=== PATIENT | female | born 1965 | race Caucasian/White ===

== ENCOUNTER 2020-01-21 01:03 | Outpatient (CLI) | payer BC, SELFPAY ==
[2020-01-21 18:10] LABS: SARS-CoV-2 RNA PCR Negative
== END 2020-01-21 01:04 | disposition home or self-care (01) ==
LOC: ANHCOVIDDT 01:04
PROVIDERS: PCP Internal Medicine; Visit Provider Urology
DX: Z20.828 Contact with and (suspected) exposure to other viral communicable diseases (principal); Z01.812 Encounter for preprocedural laboratory examination
CPT/HCPCS: 87635; C9803; U0003

== ENCOUNTER 2020-01-23 03:16 | Day surgery (SDC) | payer BC, SELFPAY ==
[2020-01-20 17:00] VITALS: BMI 24.0
[2020-01-23] VITALS (8 sets, daily range): BP systolic 109–130; BP diastolic 61–77; PULSE 57–80; RESP 12–20; TEMP 36.2–36.3; O2SAT 99–100
--- NOTE | ~2020-01-23 | XR_ITS ---
EXAMINATION: XR fluoroscopy no charge DATE: 01/23/2020 08:41 INDICATION: Left sided stone extraction TECHNIQUE: 5 fluoroscopic spot images of the abdomen and pelvis were obtained during procedure perfor med by Dr. Shukla. Radiologist was not present for the imaging or procedure. The amount of fluoroscop y time used during this procedure was 0.2 minutes. COMPARISON: None. FINDINGS: No definitive stone identified on the receptionist telephone operator images. Subsequent images demonstrate a wire and catheter advanced into the left ureter. IMPRESSION: 1. Fluoroscopy utilized during urologic procedure on the left ureter. See procedure note for further detail. Reviewed, dictated and finalized at location A. IMPRESSION: 1. Fluoroscopy utilized during urologic procedure on the left ureter. See proce dure note for further detail.
--- NOTE | 2020-01-23 07:05 | WPDHPUPDATE1 ---
History and Physical Update Update Date/Time: 01/23/20 07:05 History and Physical has been reviewed, including an updated exam of the patient. There are NO changes in the patient's condition. Risks, benefits, and alternatives have been discussed and questions answered. Patient agrees to proceed with procedure.
[2020-01-23] MEDS: LACTATED RINGERS 1,000 ML 30 ML IV CONT (07:35)
--- NOTE | 2020-01-23 07:43 | P.PNAN_ITS ---
Anes - Initial Pre Proc Eval Procedure: Operation Date: 01/23/20 08:30 Proposed Procedures p Cystoscopy, Left Ureteroscopy With Left Stone Extraction - Roly Shukla MD Date/Time: 01/23/20 07:43 Surgeon: Roly Shukla MD Pre Op Diagnosis: Kidney Stone Patient Data Age: 54 Gender: F Height: 5 ft 10.5 in Weight: 79.25 kg Last Vital Signs Temp 36.2 C L 01/23/20 06:51 Pulse 80 01/23/20 06:51 Resp 20 01/23/20 06:51 BP 118/61 01/23/20 06:51 Pulse Ox 99 01/23/20 06:51 Allergies Allergy/AdvReac Type Severity Reaction Status Date / Time No Known Allergies Allergy Verified 01/23/20 07:27 Home Medications Medication Instructions Recorded Confirmed Type albuterol sulfate 1 puff INHALATION PRN PRN 01/20/20 01/20/20 History cetirizine 5 mg PO DAILY 01/20/20 01/23/20 History fluticasone propionate 50 mcg INTRANASAL PRN 01/20/20 01/23/20 History montelukast 10 mg PO DAILY 01/20/20 01/23/20 History omeprazole 20 mg PO DAILY 01/20/20 01/23/20 History Patient hx anesthesia problems: none Family hx anesthesia problems: none [facility] Past Medical History Medical History (Updated 01/23/20 @ 07:44 by Ramesh Baig MD) Asthma Renal stones Surgical History Surgical History (Updated 01/23/20 @ 07:45 by Ramesh Baig MD) S/P correction of deviated nasal septum Social History Social History (Updated 01/23/20 @ 07:45 by Ramesh Baig MD) Smoking status: Never smoker Gender identity (if verbalized by the patient): Female Anes - Eval Final PreProcedure Day of Procedure 01/23/20 07:43 Patient weight: normal Heart: regular rate and rhythm Lungs: clear to auscultation Airway: Mallampati scale class II Neurological: alert and oriented Last oral intake: >/= 8 hours ASA classification: II Anesthetic plan: proceed Anesthesia type and monitoring: general LMA and standard monitoring Informed Consent: The patient's anesthetic plan and its attendant risks and benefits were discussed with the patient/family/POA. Questions were solicited and answers provided to the satisfaction of the patient/family/POA.
[2020-01-23] MEDS: ceFAZolin 2 GM/D5W 50 ML 2 GM/50 ML BAG IVPB (08:18)
--- NOTE | 2020-01-23 08:19 | SUR.PREOP ---
family update provided
[2020-01-23] MEDS: LIDOCAINE HCL 2% GEL UROJET 10 ML PKG MUCOUS MEM (08:35)
[2020-01-23] MEDS: KETOROLAC 30 MG/ML VIAL (*BKC) IV PUSH (08:36)
--- NOTE | 2020-01-23 08:43 | P.OP_ITS ---
Procedure Note - Detailed Date of procedure: 01/23/20 Pre-op diagnosis: Kidney Stone Post-op diagnosis: same Procedure performed: Cystoscopy, left ureteroscopy with stone extraction Description of procedure: The patient was brought to the operative suite where she is prepped and draped in a routine sterile fashion while in the dorsal lithotomy position after the uneventful induction of a general LMA anesthetic. A 19F rigid cystoscope was placed in the bladder. The patient had no evidence of urethral stricture or bladder neck contracture. The bladder mucosa was endoscopically normal without hyperemia or neoplasm. There was a single, orthotopic ureteral orifice bilaterally. A 0.035 glidewire was advanced into the left renal pelvis under fluoroscopy. The distal ureter was dilated with an 8F/10F ureteral dilator. Ureteroscopy was undertaken with a short, tapered, semi-rigid ureteroscope and the stone was extracted with ease using a 1.9F Do[employer] disposable stone basket. Due to the ease of this manipulation I opted not to place a ureteral stent. The patient's bladder was emptied and was taken to the recovery room having tolerated this procedure well. Anesthesia: GLMA Surgeon: Roly Shukla MD Estimated blood loss (mL): 0 Drains: No Packing: No Pathology: none sent Complications: No immediate complications Condition: stable Disposition: PACU
== END 2020-01-23 10:25 | disposition home or self-care (01) ==
PROVIDERS: PCP Internal Medicine; Visit Provider Urology
PROC: (CPT 52352; principal; 2020-01-23 08:30)
DX: N20.0 Calculus of kidney (principal); J45.909 Unspecified asthma, uncomplicated
CPT/HCPCS: 52352; 82365; 88300; A9270; C1769; J0690; J1100; J1885; J2250; J2405; J2704; J3010; J7120; Q9966

== ENCOUNTER 2025-01-06 08:49 | Outpatient (CLI) | payer OTHER, SELFPAY ==
--- NOTE | ~2025-01-06 | DEXA_ITS ---
Bone Density Report Name: SHALA MCCALL Age: 59 Sex: Female Ethnicity: White Date of : 1965 Indication: postmenopausal; screening for osteoporosis; parental hip fracture; inflammatory bowel disease; prior fracture; Referring Provider: UNKNOWN, UNKNOWN Study: Bone densitometry was performed. Exam Date: January 06, 2025 Accession number: [id number] Bone Density: Region BMD T-score Z-score Classification AP Spine(L1-L4) 0.855 -1.7 -0.4 Osteopenia Femoral Neck (Left) 0.605 -2.2 -1.0 Osteopenia Total Hip (Left) 0.821 -1.0 -0.1 Normal World Health Organization criteria for BMD impression classify patients as: Normal (T-score at or above -1.0), Osteopenia (T-score between -1.0 and -2.5), or Osteoporosis (T-score at or below -2.5). 10-year Fracture Risk: FRAX not reported because: Prior hip or vertebral fracture Treated for osteoporosis Clinical Information Provided by Patient: Have had a previous hip or vertebral fracture Has had a low trauma fracture Parent has had a hip fracture Is being treated for osteoporosis Has used the following medications: Reclast (i.e. zoledronate), Vitamin D, Calcium Has the following medical conditions: Inflammatory bowel diseases Patient maximum height was 70.5 Menopause Age: 51 Onset of menses at age 15 Number of children 0 Impression: The patient has low bone mass, based on the Left Femoral Neck T-score. The patient has risk factors, including: parental hip fracture, previous fracture. Discussion: It is important to ask patients whether they are taking their medications and to encourage continued and appropriate compliance with their osteoporosis therapies to reduce fracture risk. It is also important to review their risk factors and encourage appropriate calcium and vitamin D intakes, exercise, fall prevention and other lifestyle measures. Follow-Up: Consider a repeat BMD and Vertebral Fracture Assessment (VFA) exam in 2 years or sooner if medically necessary, to reassess this patient's status. Reported by: YOLANDA on 01/06/2025 9:35:00 AM. Reviewed, dictated and finalized at location A.
--- OUTSIDE RECORDS SUMMARY | 2025-01-06 08:58 | XMS_ITS | Encounter Summary ---
Author Organization [facility] Address [address] [place] [address] Care Team Providers Care Garage Helper Name Role Phone Duncan Waterman MD Primary Care Provider Encounter Details Date Type Department Care Team (Late Contact Info) Description 01/18/2024 Telephone [facility] - Centralized Scheduling [address] [place] [phone] Frieda Verdugo MD [address] [place] [phone] Social History Tobacco Use Types Packs/Day Years Used Date Smoking Tobacco: Never Assessed Comments Unknown Sex and Gender Information Value Date Recorded Sex Assigned at Not on file 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 I have put the orders in. Frieda Verdugo MD Legal Administrative Secretary Department of Endocrinology, Diabetes and Metabolism. documented in this encounter Plan of Treatment Upcoming Encounters Date Type Department Care Team ([facility] Contact Info) Description 01/20/2025 1:40 PM CDT Office Visit [facility] - Endocrinology [address] [place] [address], [place] [address] Frieda Verdugo MD [address] [facility] [address] [place] [phone] documented as of this encounter Visit Diagnoses Not on filedocumented in this encounter Care Teams Garage Helper Relationship Specialty Start Date End Date Duncan Waterman MD [address] [address] PCP - General Internal Medicine 10/02/23 documented as of this encounter
--- OUTSIDE RECORDS SUMMARY | 2025-01-06 08:58 | XMS_ITS | CONTINUITY OF CARE DOCUMENT ---
Author Name raji alegria Address Unknown Organization [facility] Address [address] [facility] [address] [place] [address] Phone [phone] Care Team Providers Care Direct Of Real Estate Name Role Phone Cynthia Lopez MD Unavailable [phone] Cynthia Lopez MD Unavailable [phone] INSURANCE PROVIDERS Payer name Policy type / Coverage type [place] [employer] party ID [facility] X[employer] insurance company 9 [id number]
--- OUTSIDE RECORDS SUMMARY | 2025-01-06 08:58 | XMS_ITS | Encounter Summary ---
Author Organization [facility] Address [address] [facility] [place] [address] Care Team Providers Care Professional Services Manager Name Role Phone Duncan Waterman MD Primary Care Provider [phone] Reason for Referral * Radiology Services (Routine) - Open Specialty Diagnoses / Procedures Referred By Leatha posada Referred To Contact Diagnoses Osteopenia of necks of both femurs History of healed fragility fracture Procedures Dexa Bone Density Axial Skeleton Frieda Verdugo MD [address] [place] [address] [address] [place] [address] Phone: tel: fax: Referral ID Status Reason Start Date Expiration Date Visits Re quested Visits Authorized [id number] Open 01/05/2025 01/05/2026 1 1 Encounter Details Date Type Department Care Team (Late st Contact Info) Description 01/05/2025 Orders Only [facility] - Endocrinology [address] [place] [address], [place] [address] Frieda Verdugo MD [address] [place] [address] [address] [place] [address] Osteopenia of necks of both femurs ; History of healed fragility fracture Social History Tobacco Use Types Packs/Day Years Used Date Smoking Tobacco: Never Assessed Comments Unknown Sex and Gender Information Value Date Recorded Sex Assigned at Not on file 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 Gender Identity Not on file Sexual Orientation Not on file documented as of this encounter Plan of Treatment Upcoming Encounters Date Type Department Care Team (Late st Contact Info) Description 01/20/2025 1:40 PM CDT Office Visit [facility] - Endocrinology [address] [place] [address], [place] [address] Frieda Verdugo MD [address] [place] [address] [place] [address] Scheduled Orders Name Type Priority Associated Diagnoses Orde r Schedule Dexa Bone Density Axial Skeleton Imaging Routine Osteopenia of necks of both femurs History of healed fragility fracture 1 Occurrences starting 01/05/2025 until 01/05/2026 documented as of this encounter Visit Diagnoses Diagnosis Osteopenia of necks of both femurs- Primary History of healed fragility fracture documented in this encounter Care Teams Professional Services Manager Relationship Specialty Start Date End Date Duncan Waterman MD [address] [address] PCP - General Internal Medicine 10/02/23 documented as of this encounter
--- OUTSIDE RECORDS SUMMARY | 2025-01-06 08:58 | XMS_ITS | Clinical Summary ---
Author Organization [facility] [employer] Address [address] [place] [address] Care Team Providers Care Old Testament Professor Name Role Phone Duncan Waterman MD Primary Care Provider Source Comments [facility],non-owned Affiliates and Associated Physician Practices is amultiple site organization consisting of ambulatory clinics and hospital sitesin [place], [place], [place] and [place]. This disclosure is being madepursuant to the Care Everywhere program and may not contain all information available regarding this patient. Last updated 18.[facility] [employer] Allergies Active Allergy Reactions Criticality Noted Date Comments Dog Epithelium Unknown 01/15/2024 Molds & Smuts Unknown 01/15/2024 Sodium Hypochlorite Unknown 01/15/2024 Medications * Be aware that medications may not be up to date on this document. Alwaysverify current medications with the patient. Eliquis 2.5 MG tablet TAKE 1 TABLET BY MOUTH EVERY 12 HOURS FOR ANTICOAGULANT Active azelastine (Astepro) 205.5 MCG/SPRAY nasal spray [place] 1 spray twice a day by intranasal route. Active benzonatate (Tessalon) 200 MG capsule Take 1 capsule 3 times a day by oral route as needed. Active cefdinir (Omnicef) 300 MG capsule 4 Active celecoxib (CeleBREX) 100 MG capsule 4 Active clarithromycin (Biaxin) 500 MG tablet Take 1 tablet every 12 hours by oral route. Active fluticasone propionate (Flonase) 50 MCG/ACT nasal spray [place] 2 (two) sprays into each nostril once daily Active montelukast (Singulair) 10 MG tablet Take 1 (one) tablet by mouth once daily Active NA-K-MG sulfates (Suprep) 17.5-3.13-1.6 GM/177ML solution Active omeprazole (PriLOSEC) 40 MG capsule Take 1 (one) capsule by mouth once daily Active pantoprazole EC (Protonix) 40 MG tablet Take 1 tablet every day by oral route. Active polyethylene glycol 3350 (Miralax) 17 g packet 4 Active predniSONE (Deltasone) 10 MG tablet 30mg x 2 days, 20mg x 2 days, 10mg x 2 days Active Stimulant Laxative 8.6-50 MG tablet TAKE 2 TABLETS BY MOUTH TWICE DAILY TO PREVENT CONSTIPATION- HOLD FOR LOOSE STOOLS 4 Active Active Problems Problem Noted Date Diagnosed Date Age-related osteoporosis wit h current pathological fracture with routine healing 01/21/2024 Encounters Date Type Department Care Team Description 01/05/2025 Orders Only [facility] - Endocrinology [address] [place] [phone] Frieda Verdugo MD Osteopenia of necks of both femurs ; History of healed fragility fracture 01/02/2025 Telephone [facility] - Endocrinology [address] [place] [phone] Frieda Verdugo MD Imaging from Last 3 Months Immunizations Immunization Administration Dates Next Due INFLUENZA VACCINE, QUADR. 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 Gender Identity Not on file Sexual Orientation Not on file Last Filed Vital Signs Vital Sign Reading Time Taken Comments Blood Pressure 149/88 01/28/2024 12:29 PM CDT Pulse 102 01/28/2024 12:29 PM CDT Temperature 36.7 C (98 F) 01/28/2024 12:29 PM CDT Respiratory Rate 20 01/28/2024 12:29 PM CDT Oxygen Saturation 100% 01/28/2024 12:29 PM CDT Inhaled Oxygen Concentration - - Weight 89.4 kg (197 lb) 01/28/2024 12:29 PM CDT Height 179.1 cm (5' 10.5) 01/15/2024 3:41 PM CD T Body Mass Index 27.87 01/15/2024 3:41 PM CDT Plan of Treatment Upcoming Encounters Date Type Department Care Team (Late st Contact Info) Description 01/20/2025 1:40 PM CDT Office Visit [facility] - Endocrinology [address] [place] [address], [place] [address] Frieda Verdugo MD [address] [place] [address] [place] [address] Health Maintenance Due Date Last Done Comments COLOGUARD (AGES 45-75) - COLON CA SCREENING 1966 COLON MONITORING 1966 COLONOSCOPY - COLON CA SCREENING 1966 CT COLONOGRAPHY - COLON CA SCREENING 1966 Colorectal Cancer Screening 1966 FIT - COLON CA SCREENING 1966 FLEX SIG - COLON CA SCREENING 1966 LIPID TESTING 1966 MAMMOGRAM 1966 PAP SMEAR 1966 HIV SCREENING 1981 HEPATITIS C SCREENING 04/22/1984 DTAP/TDAP/TD VACCINES (1 - Tdap) 1985 HEPATITIS B VACCINE (1 of 3 - 19+ 3-dose series) 1985 PNEUMOCOCCAL VACCINE 50+ (1 of 1 - PCV) 2016 ZOSTER VACCINE (1 of 2) 2016 SCREENING FOR DIABETES 10/02/2023 COVID-19 VACCINE (3 - 2023- season) 2024 11/16/2020, 10/19/2020 DEPRESSION SCREENING 08/06/2024 INFLUENZA VACCINE (Season Ended) 2025 06/11/2019, 06/12/2018, 08/01/2017, Additional history exists HIB VACCINE Aged Out No longer eligi ble based on patient's age to complete this topic HPV VACCINE Aged Out No longer eligi ble based on patient's age to complete this topic MENINGOCOCCAL (Group B) VACCINE SHARED DECISION-MAKING Aged Out No longer eligible based on patient's age to complete this topic MENINGOCOCCAL GROUPS A/C/Y/W VACCINE Aged Out No longer eligible based on patient's age to complete this topic Insurance [facility] Care Teams Old Testament Professor Relationship Specialty Start Date End Date Duncan Waterman MD [address] [facility] [address] [place] [address] PCP - General Internal Medicine 10/02/23
== END 2025-01-06 08:50 | disposition home or self-care (01) ==
PROVIDERS: PCP Internal Medicine
DX: Z78.0 Asymptomatic menopausal state (principal); M85.852 Other specified disorders of bone density and structure, left thigh; M85.851 Other specified disorders of bone density and structure, right thigh; M85.88 Other specified disorders of bone density and structure, other site
CPT/HCPCS: 77080